=== PATIENT | male | born 1985 | race Caucasian/White ===

== ENCOUNTER 2018-10-07 13:50 | Emergency (ER) | payer OTHER ==
[~2018-10-07] VITALS: Ht 188 cm; Wt 226.8 kg
[2018-10-07 14:55] VITALS: BP 186/105
--- NOTE | 2018-10-07 15:02 | NUR ---
patient to lobby
--- NOTE | 2018-10-07 15:35 | NUR ---
PT AMBULATED TO BED 09.
--- NOTE | 2018-10-07 15:40 | NUR ---
BIB SELF. AAO X4 PER PATIENT , WHILE IN [facility], SUDDENLY FELT STING/JERONIMO FEELING. PATIENT RUBBED IT AND BECAME IRRITATED.TRIED VISINE,CLEAR EYE AID BUT DID NOT RELIEVED. PERRLA, BRISK 3 MM. CLEAR DRAINAGE PER PT. DENIES N/V/D. HOB UP. BED SIDE RAILS UP. ON LOW BED POSITION, LOCKED. ER MADE AWARE PT STATUS.
[2018-10-07] MEDS ORDERED: FLUORESCEIN OPTH STRIP 0.6 MG OP ONE (16:15)
[2018-10-07] MEDS ORDERED: TETRACAINE HCL/PF 0.5% OPTH 4 ML BTL OP ONE (16:15)
--- NOTE | 2018-10-07 17:17 | NUR ---
PT BEING EVALUATED BY ER AT THIS TIME.
[2018-10-07 17:34] VITALS: BP 150/75
--- NOTE | 2018-10-07 17:34 | NUR ---
Patient discharged with v/s stable. Written and verbal after care instructions given and explained. Patient alert, oriented and verbalized understanding of instructions. Ambulatory with steady gait. All questions addressed prior to discharge. ID band removed. Patient advised to follow up with PMD. Rx of TOBRAMYCIN, NAPROSYN AND KEFLEX given. Patient educated on indication of medication including possible reaction and side effects. Opportunity to ask questions provided and answered.
== END 2018-10-07 17:34 | disposition home or self-care (01) ==
LOC: MED 13:50
DX: H10.9 Unspecified conjunctivitis (principal)
CPT/HCPCS: 99283